=== PATIENT | male | born 1975 | race Caucasian/White ===

== ENCOUNTER 2017-04-29 09:45 | Emergency (ER) | payer BC ==
[~2017-04-29] VITALS: Ht 177.8 cm; Wt 100.0 kg
[~2017-04-29 09:45] MED LIST: CLARITIN10 M1 PO; CLARITIN10 MG PO; CO Q-10200 MG PO; DEXILANT30 MG PO; Ecotrin PO; Fish Oil PO; HYDROCHLOROTHIA25 MG PO; MULTI-DAY VITA1 EACH PO; PROTONIX40 MG PO; PULMICORT FLEX90 MCG IH; PULMICORT180 MICROG IH; SLO-NIACIN500 MG PO; TYLENOL WITH C1 EACH PO; VITAMIN C1000 MG PO; VITAMIN D1000 UNIT PO; ZYRTEC10 M3 PO
[2017-04-29 10:20] LABS: HEMATOCRIT 48.6 % (38.0-50.0); HEMOGLOBIN 16.9 G/DL (12.5-16.6); MCH 30.2 PG (29.0-34.0); MCHC 34.8 G/DL (30.0-36.0); MCV 86.9 FL (86-99); RBC DIS.WIDTH-CV 11.9 % (11.8-14.6); RBC DIS.WIDTH-SD 37.8 % (39-53); RED BLOOD COUNT 5.59 M/uL (4.00-5.50); WHITE BLOOD COUNT 5.7 K/uL (4.1-10.2)
[2017-04-29 10:33] LABS: CHLORIDE 102 mEq/L (99-109); POTASSIUM 4.1 mEq/L (3.7-5.4); SODIUM 140 mEq/L (136-147)
[2017-04-29 10:35] LABS: GLUCOSE 100 mg/dL (70-99)
[2017-04-29 10:39] LABS: CREATININE 1.2 mg/dL (0.6-1.3); GFR ESTIMATE (CALCULATED) > 59 mL/min/ (58.99-99999)
[2017-04-29 10:40] LABS: UREA NITROGEN (BUN) 9 mg/dL (9-23)
[2017-04-29 10:41] LABS: TROP-I INTERPRETATION NEGATIVE; TROPONIN-I < 0.01 ng/mL (0.0-0.30)
[2017-04-29 11:10] LABS: ALBUMIN 4.4 g/dL (3.2-4.8)
[2017-04-29 11:14] LABS: TOTAL BILIRUBIN 0.8 mg/dL (0.0-1.0)
[2017-04-29 11:15] LABS: ALKALINE PHOSPHATASE 66 IU/L (3-129)
[2017-04-29 11:18] LABS: AST (GOT) 23 IU/L (2-34); DIRECT BILIRUBIN 0.2 mg/dL (0.0-0.3)
[2017-04-29 11:19] LABS: ALT (GPT) 53 IU/L (3-49); LIPASE 21 U/L (1.0-51.0)
[2017-04-29 11:41] LABS: PLAT.SUFFICIENCY ADEQUATE; PLATELET COUNT 200 K/uL (156-360)
[2017-04-29 13:17] LABS: TROP-I INTERPRETATION NEGATIVE; TROPONIN-I < 0.01 ng/mL (0.0-0.30)
[2017-04-29 13:25] VITALS: BP 121/91
== END 2017-04-29 13:34 | disposition home or self-care (01) ==
LOC: EME 09:45
PROVIDERS: Emergency Medicine
DX: R07.9 Chest pain, unspecified (principal); K21.9 Gastro-esophageal reflux disease without esophagitis; I10 Essential (primary) hypertension; J45.909 Unspecified asthma, uncomplicated
CPT/HCPCS: 71046; 80048; 80076; 83690; 84484; 85027; 93005; 99281; 99284

== ENCOUNTER 2017-08-31 18:07 | Day surgery (SDC) | payer BC ==
[~2017-08-31] VITALS: Ht 177.8 cm; Wt 97.5 kg
[~2017-08-31 18:07] MED LIST changes: -MULTI-DAY VITA1 EACH PO; +MULTI-VITAMIN1 EAC4 PO
[2017-08-31 18:39] LABS: APPEARANCE CLEAR ((CLEAR)); BILIRUBIN NEGATIVE; BLOOD NEGATIVE; COLOR YELLOW ((YELLOW)); GLUCOSE (STRIP) NEGATIVE; KETONES 80; LEUKOCYTES NEGATIVE; NITRITE NEGATIVE; PROTEIN (STRIP) 30; SPECIFIC GRAVITY 1.019 (1.000-1.030); UROBILINOGEN 0.2 MG/DL (0.2-1.0)
[2017-08-31 18:42] LABS: HEMATOCRIT 45.9 % (38.0-50.0); HEMOGLOBIN 16.4 G/DL (12.5-16.6); MCH 30.4 PG (29.0-34.0); MCHC 35.7 G/DL (30.0-36.0); MCV 85.2 FL (86-99); RBC DIS.WIDTH-CV 11.9 % (11.8-14.6); RBC DIS.WIDTH-SD 36.4 % (39-53); RED BLOOD COUNT 5.39 M/uL (4.00-5.50); WHITE BLOOD COUNT 13.3 K/uL (4.1-10.2)
[2017-08-31 18:58] LABS: ALBUMIN 4.5 g/dL (3.2-4.8); CHLORIDE 99 mEq/L (99-109); POTASSIUM 4.6 mEq/L (3.7-5.4); SODIUM 135 mEq/L (136-147)
[2017-08-31 19:00] LABS: GLUCOSE 117 mg/dL (70-99); TOTAL PROTEIN 7.1 g/dL (6.4-8.3)
[2017-08-31 19:04] LABS: ALKALINE PHOSPHATASE 59 IU/L (3-129); CREATININE 1.2 mg/dL (0.6-1.3); GFR ESTIMATE (CALCULATED) > 59 mL/min/ (58.99-99999)
[2017-08-31 19:05] LABS: AST (GOT) 21 IU/L (2-34); UREA NITROGEN (BUN) 13 mg/dL (9-23)
[2017-08-31 19:07] LABS: ALT (GPT) 36 IU/L (3-49); LIPASE 17 U/L (1.0-51.0)
[2017-08-31 19:25] LABS: HEMATOLOGY COMMENT 1 SN; PLAT.SUFFICIENCY ADEQUATE; PLATELET COUNT UNABLE TO REPORT K/uL (156-360)
[2017-08-31] MEDS ORDERED: DEXILANT60 MG PO (20:29)
[2017-08-31] MEDS ORDERED: HYDROCODON-ACE1 EAC7 PO (22:36)
[2017-09-01 00:41] VITALS: BP 130/68
[2017-09-01 03:42] VITALS: BP 115/70
[2017-09-01 08:18] VITALS: BP 127/79
[2017-09-01 09:05] LABS: HEMATOCRIT 47.1 % (38.0-50.0); HEMOGLOBIN 15.9 G/DL (12.5-16.6); MCH 29.2 PG (29.0-34.0); MCHC 33.8 G/DL (30.0-36.0); MCV 86.4 FL (86-99); RBC DIS.WIDTH-CV 12.4 % (11.8-14.6); RED BLOOD COUNT 5.45 M/uL (4.00-5.50); WHITE BLOOD COUNT 11.5 K/uL (4.1-10.2)
[2017-09-01 09:10] LABS: PLATELET COUNT 201 K/uL (156-360)
[2017-09-01 09:32] LABS: CHLORIDE 100 MEQ/L (99-109); CREATININE 1.1 MG/DL (0.6-1.3); GFR ESTIMATE (CALCULATED) > 59 mL/min/ (58.99-99999); GLUCOSE 103 mg/dL (70-99); POTASSIUM 4.2 MEQ/L (3.7-5.4); SODIUM 139 MEQ/L (136-147); UREA NITROGEN (BUN) 10 mg/dL (9-23)
== END 2017-09-01 08:55 | disposition home or self-care (01) ==
LOC: EME 18:07 → SDC 21:03 → 2SOUTH 22:41 → ENRESERV 22:42 → 2EAST 09-01 00:20
PROVIDERS: Nurse Practitioner Family; Student in an Organized Health Care Education/Training Program
PROC: 0DTJ4ZZ Resection of Appendix, Percutaneous Endoscopic Approach (ICD-10-PCS; principal; 2017-08-31)
DX: K35.80 Unspecified acute appendicitis (principal); K21.9 Gastro-esophageal reflux disease without esophagitis; E66.9 Obesity, unspecified; Z91.018 Allergy to other foods; Z91.048 Other nonmedicinal substance allergy status
CPT/HCPCS: 74177; 80048; 80053; 81003; 83605; 83690; 85027; 88304; G0378; J0330; J1170; J1885; J2405; J2710; J3010; J7030; J7120; J7643; S0074